=== PATIENT | female | born 1950 | race Caucasian/White ===

== ENCOUNTER 2021-01-04 16:48 | Outpatient (CLI) | payer MEDICARE, SELFPAY ==
--- NOTE | ~2021-01-04 | US_ITS ---
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 TECHNIQUE: Multiple ultrasound images of the thyroid were obtained. COMPARISON: Thyroid ultrasound 12/06/2017, 12/17/2015 FINDINGS: The right thyroid lobe measures 3.9 x 0.9 x 1.1 cm. The left thyroid lobe measures 5.0 x 1.4 x 1.2 c m. The thyroid is diffusely heterogeneous. Vascularity is normal. In the right thyroid lobe, there i s an 11 mm solid, isoechoic, kfrman-fcky-mfsx nodule with ill-defined margin without echogenic foci ( TI-RADS TR4), stable from 12/17/15. IMPRESSION: 1. Heterogeneous thyroid, likely chronic lymphocytic (Aide) thyroiditis. 2. Chronic thyroid nodule, likely benign. Reviewed, dictated and finalized at location A.
== END 2021-01-04 16:49 | disposition home or self-care (01) ==
PROVIDERS: PCP Internal Medicine; Visit Provider Internal Medicine
DX: C73 Malignant neoplasm of thyroid gland (principal)
CPT/HCPCS: 76536

== ENCOUNTER 2025-06-05 10:35 | Outpatient (CLI) | payer MEDICARE, SELFPAY ==
--- NOTE | ~2025-06-05 | DEXA_ITS ---
Bone Density Report Name: VERNA MEYER Age: 74 Sex: Female Ethnicity: White Date of : 1950 Indication: postmenopausal; screening for osteoporosis; prior fracture; cancer; Referring Provider: WALI SHAY Study: Bone densitometry was performed. Exam Date: June 05, 2025 Accession number: [id number] Bone Density: Region BMD T-score Z-score Classification AP Spine(L1-L4) 0.964 -0.8 1.5 Normal World Health Organization criteria for BMD impression classify patients as: Normal (T-score at or above -1.0), Osteopenia (T-score between -1.0 and -2.5), or Osteoporosis (T-score at or below -2.5). Clinical Information Provided by Patient: Has had a low trauma fracture Is being treated for osteoporosis Has used the following medications: Actonel (i.e. risedronate), Fosamax (i.e. alendronate), Prolia (i.e. denosumab), Vitamin D, Calcium Has the following medical conditions: Cancer, thyroid cancer Patient maximum height was 67 Menopause Age: 56 Onset of menses at age 15 Number of children 2 Impression: The patient has normal bone mass. The patient has risk factors, including: previous fracture. Discussion: It is important to ask patients whether they are taking their medications and to encourage continued and appropriate compliance with their osteoporosis therapies to reduce fracture risk. It is also important to review their risk factors and encourage appropriate calcium and vitamin D intakes, exercise, fall prevention and other lifestyle measures. Follow-Up: Consider a repeat BMD and Vertebral Fracture Assessment (VFA) exam in 2 years or sooner if medically necessary, to reassess this patient's status. Reported by: ANABELL on 06/05/2025 11:06:00 AM. Reviewed, dictated and finalized at location A.
== END 2025-06-05 10:36 | disposition home or self-care (01) ==
LOC: MICIMG 10:36
PROVIDERS: PCP Internal Medicine; Visit Provider Obstetrics & Gynecology
DX: Z78.0 Asymptomatic menopausal state (principal)
CPT/HCPCS: 77080